=== PATIENT | male | born 1955 | race Caucasian/White ===

== ENCOUNTER 2017-04-28 06:49 | Day surgery (SDC) | payer OTHER ==
[~2017-04-28 06:49] MED LIST: Midazolam 1 MG/ML 2 ML SDV ONE; fentaNYL 100 MCG/2 ML SDV ONE
[2017-04-28] MEDS ORDERED: Midazolam 1 MG/ML 2 ML SDV IV ONE ×3 (06:50→07:58)
[2017-04-28] MEDS ORDERED: fentaNYL 100 MCG/2 ML SDV IV ONE ×3 (06:50→07:57)
[2017-04-28] MEDS ORDERED: Sodium Chloride 0.9% 10 ML Syringe FLUSH PRN (07:53)
[2017-04-28] MEDS ORDERED: Dextrose 5%-0.45% NaCl 1,000 ML IV SCH (08:00)
--- NOTE | 2017-04-28 08:47 | OR ---
DATE: 04/28/2017 PROCEDURES: Esophagogastroduodenoscopy and multiple pinch biopsies. INSTRUMENT USED: GIF-H180 Olympus video panendoscope. PREMEDICATIONS: No oral topical anesthesia used. Fentanyl 100 mcg intravenous, Versed 2 mg intravenous. The procedure was done under pulse oximetry, BP recording, and traffic monitor specialist. INDICATION: The patient with persistent throat discomfort, coughing spells as well as heartburn and dyspepsia unexplained and not responsive to medical measures. Esophagogastroduodenoscopy is performed for detection of any active erosive lesions, Caicedo esophagus and/or malignancy also under consideration, H. pylori status to be determined, endoscopic hemostasis therapy if needed. DESCRIPTION OF PROCEDURE: The scope was passed with ease. Adequate visualization of the esophagus was made from proximal to distal areas. No upper esophageal lesions identified. No distal esophageal stricture. No uphill or downhill esophageal varices. No Emily-Strauss tear. No evidence of erosive esophagitis by Forsyth criteria. No esophageal polyp or tumor mass identified. Z-line was seen at around 40 cm distal to the oral verge, configuration consistent with grade I by ZAP classification. No proximal gastric varices noted. Gastric fundus examination by retroflexion showed no polypoid lesions. No gastric ulcer, malignant mass, or vascular ectasia identified. Scattered gastric antral erosions were noted. Duodenal bulb showed no ulcer. Visualized second part of the duodenum was unremarkable. Multiple pinch biopsies were taken from the gastric antrum and proximal body and sent for PyloriTek test for H. pylori, and if negative in an hour, tissue is to be sent for histopathology. No bleeding was noted from any of the visualized areas at the completion of examination. Photographs were taken of the duodenal bulb, gastric antrum, fundus, and distal esophagus. IMPRESSION: Gastric antral erosions. The patient tolerated the procedure well. [facility] /[id number]
[2017-04-28 09:59] VITALS: BP 114/73
== END 2017-04-28 10:04 | disposition home or self-care (01) ==
LOC: DL.ENDO 06:49
PROVIDERS: ATTEND Internal Medicine Gastroenterology
DX: K31.89 Other diseases of stomach and duodenum (principal); E66.09 Other obesity due to excess calories; I10 Essential (primary) hypertension; E78.00 Pure hypercholesterolemia, unspecified; M19.90 Unspecified osteoarthritis, unspecified site
CPT/HCPCS: 43239; 87077; J2250; J3010; J7042

== ENCOUNTER 2017-12-08 07:43 | Emergency (ER) | payer OTHER ==
--- NOTE | 2017-12-08 07:50 | EDM.PDOC ---
"ED HPI GENERAL MEDICAL PROBLEM - General Chief Complaint: Abdominal Pain Stated Complaint: PAIN IN GROIN [phone] Time Seen by Provider: 12/08/17 07:49 Source of Information: Reports: Patient, Old Records, RN, RN Notes Reviewed History Limitations: Reports: No Limitations - History of Present Illness INITIAL COMMENTS - FREE TEXT/NARRATIVE: Arrives from home by POV with c/o progressively worsening, but intermittent sharp pain at Rt inguinal/groin region with pain radiating into the proximal anterior thigh. Pt first noticed the pain a week or two ago, but it was mild and only experienced the pain occasionally with certain movements of the Rt leg/ hip and back. He saw Dr. Wright for the pain and for a annual physical yesterday, but states no specific cause was found. He does not know the results of his blood/urine tests yet. Dr. Wright scheduled him for a CT Abd/Pelvis scan for December 14, but this morning the pain was worse, so he decided he should come to the ER for evaluation. Denies injury, fall, lifting, any bulging or known hernias, changes in bowel or bladder fct, fever, chills, unexplained wt gain/loss, testicular pain or swelling, or any other symptoms. Onset: Gradual Duration: Getting Worse, Intermittent, Waxing/Waning Location: Reports: Other (Rt inguinal/groin region) Quality: Reports: Sharp Severity: Severe Improves with: Reports: Immobilization, Rest Worsens with: Reports: Movement Associated Symptoms: Reports: No Other Symptoms Right Groin Pain Score (Numeric/FACES): 9 - Related Data Allergies Allergy/AdvReac Type Severity Reaction Status Date / Time No Known Allergies Allergy Verified 04/28/17 07:04 Home Meds: Home Meds Aspirin [Halfprin] 1 tab PO DAILY 08/15/16 [History] Calcium Carb & Citrate/Vit D3 [Calcium + D3 ER Tablet] 1 tab PO DAILY 08/15/16 [ History] Doxylamine Succinate [Sleep Aid] 1 tab PO ASDIRECTED PRN 08/15/16 [History] Multivitamin [One Daily] 1 tab PO DAILY 08/15/16 [History] Olmesartan/Hydrochlorothiazide [Olmesartan-Hctz 40-25 mg Tab] 1 tab PO DAILY 04/23 [History] Pravastatin [Pravachol] 1 tab PO BEDTIME 08/15/16 [History] Verapamil HCl 1 tab PO BEDTIME 08/15/16 [History] Famotidine 1 tab PO BEDTIME 04/27/17 [History] Ibuprofen 3 tab PO ASDIRECTED 04/27/17 [History] Loratadine 1 tab PO DAILY 04/27/17 [History] Past Medical History HEENT History: Reports: Hard of Hearing Cardiovascular History: Reports: High Cholesterol, Hypertension Respiratory History: Reports: None Gastrointestinal History: Reports: Diverticulosis Genitourinary History: Reports: None Musculoskeletal History: Reports: Arthritis Other Musculoskeletal History: CARPAL TUNNEL SYNDROME Neurological History: Reports: Other (See Below) Other Neuro History: NECK PAIN CORRECTED WITH SURGICAL FUSION OF CERVICAL SPINE Psychiatric History: Reports: None Endocrine/Metabolic History: Reports: None Hematologic History: Reports: None Immunologic History: Reports: None Oncologic (Cancer) History: Reports: None Dermatologic History: Reports: None - Infectious Disease History Infectious Disease History: Reports: Chicken Pox, Measles, Mumps - Past Surgical History Head Surgeries/Procedures: Reports: None HEENT Surgical History: Reports: None Cardiovascular Surgical History: Reports: None Respiratory Surgical History: Reports: None GI Surgical History: Reports: Colonoscopy Male Surgical History: Reports: None Endocrine Surgical History: Reports: None Neurological Surgical History: Reports: C-Spine, Lumbar Spine Oncologic Surgical History: Reports: None Dermatological Surgical History: Reports: None Social & Family History - Family History Family Medical History: Noncontributory - Tobacco Use Smoking Status *Q: Never Smoker - Caffeine Use Caffeine Use: Reports: Coffee - Recreational Drug Use Recreational Drug Use: No - Living Situation & Occupation Living situation: Reports: with Family Occupation: Other (brian) ED ROS GENERAL - Review of Systems Review Of Systems: ROS reveals no pertinent complaints other than HPI. ED EXAM, GI/ABD - Physical Exam Exam: See Below Exam Limited By: No Limitations General Appearance: Alert, WD/WN, No Apparent Distress Nose: Normal Inspection Throat/Mouth: Normal Inspection, Normal Voice, No Airway Compromise Head: Atraumatic, Normocephalic Neck: Normal Inspection Respiratory/Chest: No Respiratory Distress, Lungs Clear, Normal Breath Sounds, No Accessory Muscle Use, Chest Non-Tender Cardiovascular: Normal Peripheral Pulses, Regular Rate, Rhythm, No Edema, No Gallop, No JVD, No Murmur, No Rub GI/Abdominal Exam: Normal Bowel Sounds, Soft, Non-Tender, No Organomegaly, No Distention, No Abnormal Bruit, No Mass, Pelvis Stable, Hernia (small non-tender umbilical hernia) (Male) Exam: Deferred Rectal (Males) Exam: Deferred Back Exam: Normal Inspection. No: CVA Tenderness (L), CVA Tenderness (R), Paraspinal Tenderness, Vertebral Tenderness Extremities: Normal Inspection, Normal Range of Motion (but with reproduction of pain with Rt hip ROM), Non-Tender, No Pedal Edema, Normal Capillary Refill Neurological: Alert, Oriented, CN II-XII Intact, Normal Cognition, Normal Gait, No Motor/Sensory Deficits Psychiatric: Normal Affect, Normal Mood Skin Exam: Warm, Dry, Intact, Normal Color, No Rash Course - Vital Signs Last Recorded V/S: Last Vital Signs Temp 36.4 C 12/08/17 08:55 Pulse 58 L 12/08/17 08:55 Resp 12 12/08/17 08:55 BP 138/66 12/08/17 08:55 Pulse Ox 98 12/08/17 08:55 - Orders/Labs/Meds Orders: Active Orders 24 hr Category Date Time Status Peripheral IV Care [RC] . DIRECTED Care 12/08/17 08:06 Active Abdomen Pelvis w Cont [CT] Urgent Exams 12/08/17 08:07 Taken Sodium Chloride 0.9% [Saline Flush] Med 12/08/17 08:06 Active 10 ml FLUSH ASDIRECTED PRN Peripheral IV Insertion Adult [OM.PC] Stat Oth 12/08/17 08:06 Ordered Medication Orders Sodium Chloride (Saline Flush) 10 ml FLUSH ASDIRECTED PRN PRN Reason: Keep Vein Open Labs: Laboratory Tests 12/08/17 12/08/17 Range/Units 08:16 08:16 WBC 11.2 H (5.0-10.0) 10^3/uL RBC 5.50 (4.6-6.2) 10^6/uL Hgb 16.2 (14.0-18.0) g/dL Hct 48.1 (40.0-54.0) % MCV 87.5 (80-100) fL MCH 29.5 (27.0-34.0) pg MCHC 33.7 (33.0-35.0) g/dL Plt Count 204 (150-450) 10^3/uL Neut % (Auto) 76.2 H (42.2-75.2) % Lymph % (Auto) 13.5 L (20.5-50.1) % [place] % (Auto) 7.2 (2-8) % Eos % (Auto) 2.9 (1.0-3.0) % Baso % (Auto) 0.2 (0.0-1.0) % Sodium 135 (135-145) mmol/L Potassium 3.2 L (3.6-5.0) mmol/L Chloride 100 L (101-111) mmol/L Carbon Dioxide 28.0 (21.0-31.0) mmol/L Anion Gap 10.2 BUN 20 H (7-18) mg/dL Creatinine 1.0 (0.6-1.3) mg/dL Est Cr Clr Drug Dosing 74.63 mL/min Estimated GFR (MDRD) > 60 Glucose 107 H (74-105) mg/dL Calcium 9.5 (8.4-10.2) mg/dl Lab results from 12/07/[address] Wright reviewed. Meds: Medications Generic Name Dose Route Start Last Admin Trade Name Freq PRN Reason Stop Dose Admin Sodium Chloride 10 ml 12/08/17 08:06 Saline Flush FLUSH ASDIRECTED PRN Keep Vein Open Discontinued Medications Generic Name Dose Route Start Last Admin Trade Name Freq PRN Reason Stop Dose Admin Iopamidol 100 ml 12/08/17 08:06 12/08/17 08:53 Isovue-300 (61%) IVPUSH 12/08/17 08:07 75 ml ONETIME ONE Administration - Radiology Interpretation Free Text/Narrative:: EXAM: CT Abdomen and Pelvis With Intravenous Contrast EXAM DATE/TIME: 12/08/2017 8:34 AM CLINICAL HISTORY: 62 years old, male; Pain; Abdominal pain; Localized; Right lower quadrant (rlq) ; Patient HX: Rlq/rt groin pain TECHNIQUE: Axial computed tomography images of the abdomen and pelvis with intravenous contrast. All CT scans at this facility use one or more dose reduction techniques, viz.: automated exposure control; ma/kV adjustment per patient size (including targeted exams where dose is matched to indication; i.e. head); or iterative reconstruction technique. Coronal and sagittal reformatted images were created and reviewed. CONTRAST: 75 mL of [id number] administered intravenously. COMPARISON: No relevant prior studies available. FINDINGS: Lung bases: Unremarkable. No mass. No consolidation. ABDOMEN: Liver: A tiny 4 mm hypodense lesion in right lobe of liver, probable cyst. Gallbladder and bile ducts: Unremarkable. No calcified stones. No ductal dilation. Pancreas: Unremarkable. No mass. No ductal dilation. MICAH MONTOYA | Final Radiology Report CONFIDENTIALITY STATEMENT This report is intended only for use by the referring physician, and only in accordance with law. If you received this in error, call [phone]. Page 2 of 2 Spleen: Unremarkable. No splenomegaly. Adrenals: Unremarkable. No mass. Kidneys and ureters: Bilateral renal cysts, 3 cm on each side. Symmetrical nephrograms and excretion. No hydronephrosis. Stomach and bowel: Sigmoid diverticula, no acute diverticulitis. No dilatation of small or large bowel. No mucosal thickening. PELVIS: Appendix: Normal. Bladder: Unremarkable. No mass. Reproductive: Unremarkable as visualized. ABDOMEN and PELVIS: Intraperitoneal space: Unremarkable. No free air. No significant fluid collection. Bones/joints: L1-2 disc fusion. Facet joint arthrosis. Soft tissues: Small fat containing umbilical hernia. No inguinal hernia. Vasculature: Unremarkable. No abdominal aortic aneurysm. Lymph nodes: No enlarged lymph nodes. IMPRESSION: 1. Sigmoid diverticuli, no acute diverticulitis. 2. No acute abnormality. No findings to explain patient's symptoms. 3. Remaining findings as above. Thank you for allowing us to participate in the care of your patient. Dictated and Authenticated by: Faye Lyons MD 12/08/2017 9:07 AM Central Time ([place] & [place] CT Results Date: 12/08/17 Departure - Departure Time of Disposition: 09:42 Disposition: Home, Self-Care 01 Condition: Fair Clinical Impression: Right groin pain, Acute right lumbar radiculopathy - Discharge Information Instructions: Radicular Pain, Pelvic Pain, Male Referrals: Juan Diego Wright MD [Primary Care Provider] - Forms: ED Department Discharge Additional Instructions: Rx: Pecan Gap 5mg/325mg *Do not drive or work while under the influence of this medication. May cause constipation, use a stool softener if needed. Rx: Decadron 4mg Light activity as tolerated. Follow up in clinic with Dr. Wright next week. - My Orders Last 24 Hours: My Active Orders 12/08/17 08:06 Peripheral IV Care [RC] . DIRECTED Sodium Chloride 0.9% [Saline Flush] 10 ml FLUSH ASDIRECTED PRN Peripheral IV Insertion Adult [OM.PC] Stat 12/08/17 08:07 Abdomen Pelvis w Cont [CT] Urgent - Assessment/Plan Last 24 Hours: My Active Orders 12/08/17 08:06 Peripheral IV Care [RC] . DIRECTED Sodium Chloride 0.9% [Saline Flush] 10 ml FLUSH ASDIRECTED PRN Peripheral IV Insertion Adult [OM.PC] Stat 12/08/17 08:07 Abdomen Pelvis w Cont [CT] Urgent"
[2017-12-08] MEDS ORDERED: Iopamidol 612 MG/ML 100 ML Bottle IVPUSH ONE (08:06)
[2017-12-08] MEDS ORDERED: Sodium Chloride 0.9% 10 ML Syringe FLUSH PRN (08:06)
[2017-12-08 08:43] LABS: CHLORIDE,CL 100 mmol/L (101-111); SODIUM,NA 135 mmol/L (135-145)
[2017-12-08 08:57] VITALS: BP 138/66
== END 2017-12-08 10:08 | disposition home or self-care (01) ==
LOC: DL.ED 07:43
DX: M54.16 Radiculopathy, lumbar region (principal); R10.31 Right lower quadrant pain; E78.00 Pure hypercholesterolemia, unspecified; I10 Essential (primary) hypertension; Z79.82 Long term (current) use of aspirin; Z79.899 Other long term (current) drug therapy
CPT/HCPCS: 36415; 74177; 80048; 85025; 99284; Q9967